=== PATIENT | male | born 1995 | race Caucasian/White ===

== ENCOUNTER 2017-05-23 02:43 | Emergency (ER) | payer OTHER ==
[~2017-05-23] VITALS: Ht 177.8 cm; Wt 72.8 kg
[2017-05-23 02:46] VITALS: TEMP 36.9; Ht 177.8 cm; Wt 72.8 kg
[2017-05-23] MEDS ORDERED: AMX250 PO (03:15)
[2017-05-23] MEDS ORDERED: CEFTRIAXONE SOD 350MG/ML 1 GM VIAL IM STA (04:14)
[2017-05-23] MEDS ORDERED: DOXYCYCLINE HYCLATE 100 MG CAP PO ONE (04:15)
--- NOTE | 2017-05-23 04:15 | EMERGENCY ROOM VISIT NOTE ---
History Report prepared by Jim: Barbara Lopez Under the Supervision of: Dr. Danita Matute D.O. First contact with patient: 02:50 Chief Complaint: TESTICULAR PAIN Stated Complaint: TESTICULAR PAIN,SWELLING History of Present Illness The patient is a 21 year old male who presents to the Emergency Room with complaints of constant testicular pain starting yesterday morning. The patient states that he noticed it when he got up. He reports that he skipped his first class to sit around, but the pain did not go away. He reports that he looked at his testes to see if they were out of place, but was unsure. He notes that they seemed harder and more swollen than they normally are. He states that movement, such as walking makes the pain worse, while rest such as sitting and lying down , make the pain subside some. The patient notes that he has an intermittent abdominal pain on the right side that comes when the pain is worse. He describes it as an aching. The patient denies taking anything for the pain, ever having either pain before, recent trauma, recent change in activity, rashes , sores, urinary symptoms, recent intercourse, pain with intercourse, and a history of STDs. Source of History: patient Onset: yesterday morning Position: other (testes) Quality: ache Timing: constant Modifying Factors (Worsening): movement Modifying Factors (Relieving): rest Associated Symptoms: + abdominal pain, No urinary symptoms, No rash Note: The patient denies taking anything for the pain, ever having either pain before , recent trauma, recent change in activity, sores, recent intercourse, pain with intercourse, and a history of STDs. Review of Systems See HPI for pertinent positives & negatives. A total of 10 systems reviewed and were otherwise negative. Past Medical & Surgical Medical Problems: (1) No Known Active Medical Problems Family History Patient reports no known family medical history. Social History Smoking Status: Never Smoker Marital Status: single Housing Status: lives with roommate Occupation Status: [employer] student Current/Historical Medications Scheduled Amoxicillin (Amoxicillin), 125 MG PO BID Doxycycline Monohydrate (Monodox), 100 MG PO BID Allergies Coded Allergies: No Known Allergies (Unverified , 05/23/17) Physical Exam Vital Signs Date Time Temp Pulse Resp B/P (MAP) Pulse Ox O2 Delivery O2 Flow Rate FiO2 05/23/17 05:23 90 16 135/87 97 05/23/17 04:31 97 18 133/76 97 Room Air 05/23/17 02:46 36.9 109 16 137/81 97 Room Air Physical Exam GENERAL: alert, well appearing, well nourished, no distress, non-toxic EYE EXAM: normal conjunctiva, PERRL and EOM's grossly intact OROPHARYNX: no exudate, no erythema, lips, buccal mucosa, and tongue normal and mucous membranes are moist NECK: supple, no nuchal rigidity, no adenopathy, non-tender LUNGS: Clear to auscultation. Normal chest wall mechanics HEART: no murmurs, S1 normal and S2 normal ABDOMEN: abdomen soft, non-tender, normo-active bowel sounds, no masses, no rebound or guarding. : Louie 5 circumcised, bilaterally descended testicles, right testicular swelling and pain with palpation, no palpable mass, mild right scrotal edema, no penile discharge, no rash, no sores, no inguinal lymphadenopathy, no obvious hernia BACK: Back is symmetrical on inspection and there is no deformity, no midline tenderness, no CVA tenderness. SKIN: no rashes and no bruising UPPER EXTREMITIES: upper extremities are grossly normal. LOWER EXTREMITIES: No pitting edema. NEURO EXAM: Normal sensorium, cranial nerves II-XII grossly intact, normal speech, no gross weakness of arms, no gross weakness of legs. Medical Decision & Procedures ER Provider Diagnostic Interpretation: Radiology results have been interpreted by the radiologist and reviewed by me. US SCROTAL: Heterogenous appearance with increased vascularity of the right testis and epididymis suggesting an acute inflammatory or infectious epididymoorchitis. Small cyst seen within the right epididymis. The left testis and epididymis are within normal limits. Radiologist: Matthew Jacob MD Study ready at 03:40 and initial results transmitted at 03:42. Laboratory Results Test 05/23/17 02:55 05/23/17 05:11 Urine Color YELLOW Urine Appearance CLEAR (CLEAR) Urine pH 5.5 (4.5-7.5) Urine Specific [place] 1.024 (1.000-1.030) Urine Protein NEG (NEG) Urine Glucose (UA) NEG (NEG) Urine Ketones NEG (NEG) Urine Occult Blood NEG (NEG) Urine Nitrite NEG (NEG) Urine Bilirubin NEG (NEG) Urine Urobilinogen NEG (NEG) Urine Leukocyte Esterase NEG (NEG) Laboratory results per my review. Medications Administered Medications (Trade) Dose Ordered Sig/Jhon Route Start Time Stop Time Status Last Admin Dose Admin Ceftriaxone Sodium (Rocephin Im) 250 mg NOW STAT IM 05/23/17 04:14 05/23/17 04:15 DC 05/23/17 04:35 250 MG Azithromycin (Zithromax Tab) 1,000 mg NOW ONCE PO 05/23/17 05:15 05/23/17 05:16 DC 05/23/17 05:22 1,000 MG ED Course 0252: The patient was evaluated in room A12B. A complete history and physical exam was performed. 0414: Ordered Rocephin Im 250 mg IM. 0415: Ordered Doxycycline Hyclate 100 mg PO. 0435: I reevaluated the patient and he is doing well. 0448: Upon reevaluation, the patient is feeling better. I discussed the findings and the treatment plan with the patient. He verbalizes agreement and understanding. The patient was discharged home. 0515: Ordered Azithromycin 1000 mg PO. Medical Decision The patient is a 21 year old male who presents to the Emergency Room with complaints of constant testicular pain starting yesterday morning. Differential diagnoses include testicular torsion, epididymitis, STD, hydrocele , varicocele, trauma. Despite patient denying any new sexual partners and history of STD, patient covered for infectious etiology related to STDs. Given patient's recent description of a salivary gland infection treated by medicshania thorpe and malachi and epididymoorchitis on an ultrasound, a mumps titer was sent as precaution. Patient immunized in no recent exposures to feel this is less likely. Patient has not yet completed the course of antibiotics that he was revealing prescribed for the salivary gland infection. Given concern for potential GI ADRs and risk of C. difficile, patient given IM Rocephin and 1 g of azithromycin here cover for STDs, and advised to finish his course of antibiotics for the salivary gland infection and then start the course of doxycycline. Advised patient to use probiotics for taking antibiotics. Discussed close follow-up with urology, scrotal elevation and supportive undergarments, Tylenol and ibuprofen as needed for pain, and avoidance of sexual activity until otherwise seen and evaluated by urology. GC/Chlamydia culture sent and pending. Discussed with patient symptoms watch and return for , he verbalized understanding was agreeable with plan. Medication Reconcilliation Current Medication List: was personally reviewed by me Blood Pressure Screening Patient's blood pressure: Normal blood pressure Blood pressure disposition: Did not require urgent referral Impression Primary Impression: Epididymo-orchitis Additional Impressions: Epididymal cyst Right testicular pain Scribe Attestation The scribe's documentation has been prepared under my direction and personally reviewed by me in its entirety. I confirm that the note above accurately reflects all work, treatment, procedures, and medical decision making performed by me. Departure Information Dispostion Home / Self-Care Prescriptions Doxycycline Monohydrate (Monodox) 100 Mg Cap 100 MG PO BID for 10 Days, #20 CAP Prov: Danita Matute, DO 05/23/17 Referrals No Doctor, Assigned (PCP) Forms HOME CARE DOCUMENTATION FORM, IMPORTANT VISIT INFORMATION, WORK / SCHOOL INSTRUCTIONS Patient Instructions My [facility] Additional Instructions Please follow-up with urology. You will receive a phone call if any of the additional tests are positive they will take several days to resolve. Please drink plenty of water. You may use Tylenol and ibuprofen as needed for pain. These were supportive undergarments or consider use of a jockstrap in the short- term to help with scrotal support and elevation. If you have any worsening pain , increased swelling, are unable to urinate, develop fevers or chills, have a change in bowel movements, or you've any other new concerns, please return the emergency room. Problem Qualifiers
[2017-05-23] MEDS ORDERED: DOXY100C76 PO (05:08)
[2017-05-23] MEDS ORDERED: AZITHROMYCIN 250 MG TAB PO ONE (05:15)
[2017-05-23 05:23] VITALS: BP 135/87; PULSE 90; O2SAT 97
--- NOTE | 2017-05-23 07:16 | DIAGNOSTIC IMAGING REPORT ---
ULTRASOUND TESTES AND SCROTUM CLINICAL HISTORY: Right testicular pain and swelling. COMPARISON STUDY: No priors. TECHNIQUE: Real-time, grayscale, and color Doppler sonography of the testes and scrotum is performed. Images are reviewed in the transverse and longitudinal planes. FINDINGS: The testes are normal in size. The right testis is slightly heterogeneous in echotexture. The right testis measures 5.3 x 2.9 x 3.9 cm and the left testis measures 4.6 x 2.5 x 3.3 cm. No intratesticular mass is seen. The right testis appears hyperemic on color imaging. Normal Doppler waveforms are identified in both testes. The epididymal heads are normal in appearance. The right epididymal head measures 1.5 cm in length and the left epididymal head measures 1.0 cm in length. Small epididymal head cysts are seen on the right and measure up to 4 mm. The right epididymis appears hyperemic as compared to the left. No varicocele or hydrocele is seen. IMPRESSION: 1. Findings suggest right-sided epididymoorchitis. Clinical correlation will be required. 2. The left testis is normal in appearance. Electronically signed by: Hamilton Montoya M.D. 05/23/2017 7:14 AM Dictated Date/Time: 05/23/2017 7:12 AM
== END 2017-05-23 05:30 | disposition home or self-care (01) ==
LOC: C.EDB 02:44 → C.EDA 05:30
DX: N45.3 Epididymo-orchitis (principal); N50.3 Cyst of epididymis